=== PATIENT | female | born 1980 | race African-American/Black ===

== ENCOUNTER 2018-12-02 17:10 | Emergency (ER) | payer OTHER ==
[~2018-12-02] VITALS: Ht 165.1 cm; Wt 65.9 kg
[2018-12-02] MEDS ORDERED: DiphenhydrAMINE HCL 50 MG/ML VIAL IVP ONE (17:30)
[2018-12-02] MEDS ORDERED: PRED1 PO (17:40)
[2018-12-02] MEDS ORDERED: OXYC10 PO (17:40)
[2018-12-02 17:47] LABS: HEMATOCRIT 32.9 % (36-46); HEMOGLOBIN 10.3 g/dL (12.0-16.0); MEAN CORPUSCULAR HEMOGLOBIN 23.2 pg (26.0-34.0); MEAN CORPUSCULAR HGB CONC 31.4 G/dL (31.0-37.0); MEAN CORPUSCULAR VOLUME 74 fL (80-100); PLATELET COUNT (AUTO) 544 K/uL (150-450); RED BLOOD CELL COUNT(AUTO) 4.45 MIL/uL (4.00-5.20); RED CELL DISTRIBUTION WIDTH 22.3 % (11.5-14.5)
[2018-12-02 17:59] LABS: ANION GAP 11 mmol/L (8-16); CALCIUM, TOTAL 8.7 mg/dL (8.8-10.5); CARBON DIOXIDE 22 mmol/L (22-29); CHLORIDE 108 mmol/L (98-107); CREATININE 0.76 mg/dL (0.60-1.30); GLOMERULAR FILTR. RATE CALC > 60 mL/min (>60); GLUCOSE,RANDOM 92 mg/dL (70-110); SODIUM SERUM 141 mmol/L (136-145); UREA NITROGEN, BLOOD 7 mg/dL (7-18)
[2018-12-02 18:05] LABS: BAND NEUTROPHILS % (MANUAL) 1 % (0-5); EOSINOPHILS % (MANUAL) 6 % (1-6); LYMPHOCYTES % (MANUAL) 37 % (22-44); MONOCYTES % (MANUAL) 6 % (2-9); REACTIVE LYMPHOCYTES 10 % (0-0); SEGMENTED NEUTROPHILS % 40 % (40-70)
[2018-12-02 18:06] LABS: PLATELET MORPHOLOGY COMMENT INCREASED
[2018-12-02 18:10] LABS: ALANINE AMINOTRANSFERASE 21 U/L (12-78); ALBUMIN 3.6 g/dL (3.4-5.0); ALKALINE PHOSPHATASE 87 U/L (46-116); ASPARTATE AMINOTRANSFERASE 16 U/L (15-37); BILIRUBIN,TOTAL 0.1 mg/dL (0.1-1.0); HCG,QUANTITATIVE < 1 mIU/mL (0-6); TOTAL PROTEIN, SERUM 7.6 g/dL (6.4-8.2)
[2018-12-02 20:33] VITALS: BP 118/73
== END 2018-12-02 20:48 | disposition home or self-care (01) ==
LOC: EMS 17:11
DX: L30.9 Dermatitis, unspecified (principal); F41.9 Anxiety disorder, unspecified; M79.601 Pain in right arm; Z90.49 Acquired absence of other specified parts of digestive tract; Z88.8 Allergy status to other drugs, medicaments and biological substances; Z88.5 Allergy status to narcotic agent
CPT/HCPCS: 80053; 84702; 85025; 96374; 99283; G0480; J1200

== ENCOUNTER 2020-01-14 11:59 | Emergency (ER) | payer OTHER ==
[~2020-01-14] VITALS: Ht 165.1 cm; Wt 55.1 kg
[~2020-01-14 11:59] MED LIST: OXYC10TA59 PO; PRED1 PO
[2020-01-14] MEDS ORDERED: IOVERSOL 350 MG/ML 100 ML VIAL ONE (12:26)
[2020-01-14] MEDS ORDERED: SODIUM CHLORIDE 0.9% 0 ML ONE (12:26)
[2020-01-14 13:00] LABS: EOSINOPHILS % (AUTO) 4.9 % (1.0-6.0); HEMATOCRIT 30.7 % (36-46); HEMOGLOBIN 9.6 g/dL (12.0-16.0); LYMPHOCYTES # (AUTO) 1.6 K/uL (1.0-4.8); LYMPHOCYTES % (AUTO) 43.7 % (22.0-44.0); MEAN CORPUSCULAR HEMOGLOBIN 23.3 pg (26.0-34.0); MEAN CORPUSCULAR HGB CONC 31.2 G/dL (31.0-37.0); MEAN CORPUSCULAR VOLUME 75 fL (80-100); MONOCYTES # (AUTO) 0.4 K/uL (0.1-1.0); MONOCYTES % (AUTO) 11.5 % (2.0-9.0); NEUTROPHILS # (AUTO) 1.4 K/uL (1.8-7.7); NEUTROPHILS % (AUTO) 38.9 % (40.0-70.0); PLATELET COUNT (AUTO) 385 K/uL (150-450); RED BLOOD CELL COUNT(AUTO) 4.12 MIL/uL (4.00-5.20); RED CELL DISTRIBUTION WIDTH 19.6 % (11.5-14.5)
[2020-01-14 13:09] LABS: ANION GAP 9 mmol/L (8-16); CALCIUM, TOTAL 8.9 mg/dL (8.8-10.5); CARBON DIOXIDE 25 mmol/L (22-29); CHLORIDE 106 mmol/L (98-107); CREATININE 0.57 mg/dL (0.60-1.30); GLOMERULAR FILTR. RATE CALC > 60 mL/min (>60); GLUCOSE,RANDOM 95 mg/dL (70-110); POTASSIUM 3.7 mmol/L (3.5-5.1); SODIUM SERUM 140 mmol/L (136-145); UREA NITROGEN, BLOOD 10 mg/dL (7-18)
[2020-01-14 13:16] LABS: AMMONIA 15 umol/L (11-32)
[2020-01-14 13:17] LABS: TROPONIN I < 0.02 ng/mL (0.00-0.05)
[2020-01-14] MEDS ORDERED: DiphenhydrAMINE HCL 50 MG/ML VIAL IVP ONE (13:30)
[2020-01-14] MEDS ORDERED: SODIUM CHLORIDE 0.9% 1,000 ML IV ONE (13:30)
[2020-01-14 13:34] LABS: ALANINE AMINOTRANSFERASE 19 U/L (12-78); ALBUMIN 3.1 g/dL (3.4-5.0); ALKALINE PHOSPHATASE 87 U/L (46-116); ASPARTATE AMINOTRANSFERASE 13 U/L (15-37); BILIRUBIN,TOTAL 0.3 mg/dL (0.1-1.0); CREATINE KINASE, TOTAL ONLY 101 U/L (26-192); HCG,QUANTITATIVE < 1 mIU/mL (0-6); LIPASE 116 U/L (73-393)
[2020-01-14 14:11] LABS: APPEARANCE,URINE TURBID (CLEAR); BILIRUBIN,URINE NEGATIVE (NEGATIVE); GLUCOSE, URINE (UA) NEGATIVE (NEGATIVE); KETONES,URINE NEGATIVE (NEGATIVE); LEUKOCYTE ESTERASE ,URINE LARGE (NEGATIVE); NITRATE,URINE POSITIVE (NEGATIVE); OCCULT BLOOD,URINE LARGE (NEGATIVE); PROTEIN,URINE POS 1+ (NEGATIVE)
[2020-01-14] MEDS ORDERED: LORazepam 2 MG/ML VIAL IVP ONE (14:15)
[2020-01-14 14:22] LABS: BACTERIA,URINE Many /HPF (None Seen); SQUAMOUS EPITHELIAL CELL,UR Many /LPF (None Seen)
[2020-01-14 14:30] VITALS: BP 139/79
[2020-01-14 14:31] LABS: AMPHET/METH SCREEN,URINE NEGATIVE (NEGATIVE); BARBITURATE SCREEN, URINE NEGATIVE (NEGATIVE); BENZODIAZEPINES SCREEN,URINE NEGATIVE (NEGATIVE); CANNABINOID SCREEN,URINE NEGATIVE (NEGATIVE); COCAINE SCREEN,URINE NEGATIVE (NEGATIVE); METHADONE SCREEN, URINE NEGATIVE (NEGATIVE); OPIATE SCREEN,URINE POSITIVE (NEGATIVE); PHENCYCLIDINE SCREEN,URINE NEGATIVE (NEGATIVE)
[2020-01-14 15:03] LABS: APPEARANCE,URINE CLOUDY (CLEAR); BILIRUBIN,URINE NEGATIVE (NEGATIVE); GLUCOSE, URINE (UA) NEGATIVE (NEGATIVE); KETONES,URINE NEGATIVE (NEGATIVE); LEUKOCYTE ESTERASE ,URINE SMALL (NEGATIVE); NITRATE,URINE POSITIVE (NEGATIVE); OCCULT BLOOD,URINE SMALL (NEGATIVE); PH,URINE 6.5 (5.0-8.0); PROTEIN,URINE TRACE (NEGATIVE); UROBILINOGEN,URINE 0.2 mg/dL (<=1.0)
[2020-01-14 15:13] LABS: BACTERIA,URINE Many /HPF (None Seen)
[2020-01-14 15:14] LABS: SQUAMOUS EPITHELIAL CELL,UR Moderate /LPF (None Seen)
== END 2020-01-14 15:25 | disposition home or self-care (01) ==
LOC: EMS 12:00
DX: N39.0 Urinary tract infection, site not specified (principal); G93.40 Encephalopathy, unspecified; R10.84 Generalized abdominal pain; G89.29 Other chronic pain; F20.9 Schizophrenia, unspecified; F11.90 Opioid use, unspecified, uncomplicated; Z90.89 Acquired absence of other organs; Z88.5 Allergy status to narcotic agent; Z88.8 Allergy status to other drugs, medicaments and biological substances
CPT/HCPCS: 36415; 71045; 80053; 80307; 81001; 82140; 82550; 82962; 83605; 83690; 84484; 84702; 85025; 87077; 87086; 87186; 93005; 96361; 96374; 96375; 99285; G0480; J1200; J2060; J7030; J7050

== ENCOUNTER 2021-04-23 22:55 | Emergency (ER) | payer OTHER ==
[~2021-04-23] VITALS: Ht 162.6 cm; Wt 63.6 kg
[2021-04-23] MEDS ORDERED: SODIUM CHLORIDE 0.9% 1,000 ML IV ONE (23:15)
[2021-04-23] MEDS ORDERED: OXYC-618 PO (23:27)
[2021-04-23 23:45] LABS: COVID AG,FIA SOURCE NASAL SWAB
[2021-04-24 00:44] LABS: AMPHET/METH SCREEN,URINE NEGATIVE (NEGATIVE); BARBITURATE SCREEN, URINE NEGATIVE (NEGATIVE); BENZODIAZEPINES SCREEN,URINE NEGATIVE (NEGATIVE); CANNABINOID SCREEN,URINE NEGATIVE (NEGATIVE); COCAINE SCREEN,URINE NEGATIVE (NEGATIVE); METHADONE SCREEN, URINE NEGATIVE (NEGATIVE); OPIATE SCREEN,URINE POSITIVE (NEGATIVE)
[2021-04-24 00:49] LABS: PHENCYCLIDINE SCREEN,URINE NEGATIVE (NEGATIVE)
[2021-04-24 01:29] LABS: BASOPHILS % (AUTO) 1.5 % (0.0-2.0); EOSINOPHILS % (AUTO) 13.1 % (1.0-6.0); HEMATOCRIT 22.6 % (36-46); HEMOGLOBIN 7.1 g/dL (12.0-16.0); LYMPHOCYTES # (AUTO) 1.5 K/uL (1.0-4.8); LYMPHOCYTES % (AUTO) 37.4 % (22.0-44.0); MEAN CORPUSCULAR HEMOGLOBIN 20.9 pg (26.0-34.0); MEAN CORPUSCULAR HGB CONC 31.3 G/dL (31.0-37.0); MEAN CORPUSCULAR VOLUME 67 fL (80-100); MONOCYTES # (AUTO) 0.4 K/uL (0.1-1.0); MONOCYTES % (AUTO) 8.9 % (2.0-9.0); NEUTROPHILS # (AUTO) 1.6 K/uL (1.8-7.7); NEUTROPHILS % (AUTO) 39.1 % (40.0-70.0); PLATELET COUNT (AUTO) 538 K/uL (150-450); RED BLOOD CELL COUNT(AUTO) 3.38 MIL/uL (4.00-5.20); RED CELL DISTRIBUTION WIDTH 21.1 % (11.5-14.5)
[2021-04-24 01:40] LABS: ANION GAP 10 mmol/L (8-16); CALCIUM, TOTAL 8.8 mg/dL (8.8-10.5); CARBON DIOXIDE 26 mmol/L (22-29); CHLORIDE 100 mmol/L (98-107); CREATININE 0.53 mg/dL (0.60-1.30); GLOMERULAR FILTR. RATE CALC > 60 mL/min (>60); GLUCOSE,RANDOM 87 mg/dL (70-110); POTASSIUM 3.6 mmol/L (3.5-5.1); SODIUM SERUM 136 mmol/L (136-145); UREA NITROGEN, BLOOD 8 mg/dL (7-18)
[2021-04-24 01:51] LABS: ALANINE AMINOTRANSFERASE 18 U/L (12-78); ALBUMIN 3.3 g/dL (3.4-5.0); ALKALINE PHOSPHATASE 73 U/L (46-116); ASPARTATE AMINOTRANSFERASE 15 U/L (15-37); BILIRUBIN,TOTAL 0.2 mg/dL (0.1-1.0); HCG,QUANTITATIVE 1 mIU/mL (0-6); TOTAL PROTEIN, SERUM 7.2 g/dL (6.4-8.2)
[2021-04-24 01:54] LABS: ACETAMINOPHEN < 2 mcg/mL (10-30)
[2021-04-24 03:19] VITALS: BP 126/83
== END 2021-04-24 03:00 | disposition left against medical advice (07) ==
LOC: EMS 22:55
DX: G93.40 Encephalopathy, unspecified (principal); F20.9 Schizophrenia, unspecified; Z88.8 Allergy status to other drugs, medicaments and biological substances; Z79.899 Other long term (current) drug therapy; Z20.822 Contact with and (suspected) exposure to COVID-19
CPT/HCPCS: 36415; 70450; 80053; 80307; 83735; 84702; 85025; 87426; 93005; 96360; 99291; G0480; J7030; 51702; G0481